=== PATIENT | female | born 1990 | race Caucasian/White ===

== ENCOUNTER 2017-01-29 00:11 | Observation (INO) | payer BC, MEDICAID ==
[2017-01-29] MEDS ORDERED: Albuterol/Ipratropium 3.0-0.5 MG/3 ML Neb Soln NEB ONE (00:32)
--- NOTE | 2017-01-29 00:44 | EDM.PDOC ---
ED HISTORY OF PRESENT ILLNESS - General Chief Complaint: Respiratory Problem Stated Complaint: shortness of breath Time Seen by Provider: 01/29/17 00:16 Source of Information: Reports: Patient, Family History Limitations: Reports: No limitations - History of Present Illness INITIAL COMMENTS - FREE TEXT/NARRATIVE: in with c/o sob/wheezing, pt appears to be in distress, O2 sat on room air is 86 %, denies fever or chills, no ear, nose or throat sx, no abd pain, no cp, no nvdc, advised sx started x 4 days ago and worse tonight. no calf pain, redness or swelling, no palpitations or irregular heart beat Symptom Onset Date: 01/28/17 Severity: severe Improves with: Reports: None Worsens with: Reports: None Associated Symptoms (General): Reports: cough, fever/chills. Denies: diaphoresis, nausea/vomiting, syncope, weakness Treatments THERAPY TECH: Reports: Other (see below) (proventil MDI) - Related Data Allergies/ADRs: Allergies Allergy/AdvReac Type Severity Reaction Status Date / Time levofloxacin [From Levaquin] Allergy Cannot Verified 01/29/17 00:25 Remember Home Meds: Home Meds Albuterol Sulfate [Proair Respiclick] 2 puff INH Q4HR PRN 09/21/15 [History] Past Medical History Respiratory History: Reports: Asthma Other OB/BYN History: miscariage x2 Neurological History: Reports: Migraines Other Hematologic History: anti-throbian 3 deficiciency Social & Family History - Tobacco Use Smoking Status *Q: Never Smoker Second Hand Smoke Exposure: No - Alcohol Use Alcohol Use History: No - Recreational Drug Use Recreational Drug Use: No - Living Situation & Occupation Living situation: Reports: , with family ED ROS GENERAL - Review of Systems Review Of Systems: See Below Constitutional: Reports: fever, chills HEENT: Reports: Sinus problem. Denies: Ear pain, Eye pain Respiratory: Reports: shortness of breath, wheezing, cough Cardiovascular: Reports: No symptoms. Denies: Chest pain Endocrine: Reports: no symptoms GI/Abdominal: Reports: No symptoms. Denies: Abdominal pain, Nausea, Vomiting : Reports: no symptoms Musculoskeletal: Reports: no symptoms. Denies: neck pain, back pain Skin: Reports: no symptoms. Denies: rash Neurological: Reports: no symptoms Psychiatric: Reports: No symptoms Hematologic/Lymphatic: Reports: no symptoms ED EXAM, GENERAL - Physical Exam Exam: See Below Exam Limited By: No limitations General Appearance: alert, WD/WN, mild distress, obese Ears: normal external exam, normal canal, hearing grossly normal, normal TMs Ear Exam: bilateral ear: auricle normal, canal normal, TM normal Nose: nasal drainage. No: normal inspection Throat/Mouth: Normal inspection, Normal lips, Normal oropharynx, Normal voice, No airway compromise Head: atraumatic, normocephalic Neck: normal inspection, supple, non-tender, full range of motion Respiratory/Chest: wheezing, accessory muscle use. No: lungs clear Cardiovascular: normal peripheral pulses, regular rate, rhythm, no murmur Peripheral Pulses: 2+: radial (L), radial (R) GI/Abdominal: soft, non tender Back Exam: normal inspection, full range of motion Extremities: normal inspection, normal range of motion, non-tender, no pedal edema, normal capillary refill Neurological: alert, oriented, normal cognition, normal gait, no motor/sensory deficits Psychiatric: normal affect, anxious Skin Exam: Warm, Dry, Intact, Normal color, No rash Lymphatic: no adenopathy EKG INTERPRETATION EKG Date: 01/29/17 Time: 00:50 Rhythm: other (Stach) Rate (beats/min): 111 [place]: normal P-wave: present QRS: normal ST-T: normal QT: normal EKG Interpretation Comments: STach rate 111 Course - Vital Signs Last Recorded V/S: Last Vital Signs Temp 38.3 C H 01/29/17 00:16 Pulse 110 H 01/29/17 00:16 Resp 24 H 01/29/17 00:16 BP 151/92 H 01/29/17 00:16 Pulse Ox 91 L 01/29/17 00:16 - Orders/Labs/Meds Orders: Active Orders 24 hr Category Date Time Status Pulse Oximetry [RC] ASDIRECTED Care 01/29/17 00:22 Active RT Aerosol Therapy [RC] ASDIRECTED Care 01/29/17 00:32 Active Supplemental O2 [Oxygen Therapy, ED] [RC] ASDIRECTED Care 01/29/17 00:20 Active Chest 2V [CR] Stat Exams 01/29/17 00:18 Taken CULTURE BLOOD [BC] Stat Lab 01/29/17 00:35 Received CULTURE BLOOD [BC] Stat Lab 01/29/17 00:40 Received DD [D-DIMER QUANTITATIVE] [COAG] Stat Lab 01/29/17 00:35 Received UA W/MICROSCOPIC [URIN] Stat Lab 01/29/17 01:00 Ordered Blood Culture x2 Reflex Set [OM.PC] Stat Oth 01/29/17 00:18 Ordered Labs: Laboratory Tests 01/29/17 01/29/17 01/29/17 Range/Units 00:35 00:35 00:35 WBC 11.8 H (5.0-10.0) 10^3/uL RBC 4.02 (4.00-5.50) 10^6/uL Hgb 11.3 L (12.0-16.0) g/dL Hct 34.0 L (37.0-47.0) % MCV 84.6 (82.0-94.0) fL MCH 28.1 (27.0-32.0) pg MCHC 33.2 (33.0-38.0) g/dL RDW Coeff of Angel 15.2 H (11.0-15.0) % Plt Count 281 (150-400) 10^3/uL Neut % (Auto) 69.7 (35-85) % Lymph % (Auto) 19.2 (10-55) % [place] % (Auto) 6.4 (0-16) % Eos % (Auto) 4.6 (0-5) % Baso % (Auto) 0.1 (0-3) % Neut # 8.23 H (1.80-7.00) 10^3/uL Lymph # 2.27 (1.00-4.80) 10^3/uL [place] # 0.75 (0.00-0.80) 10^3/uL Eos # 0.54 H (0.00-0.45) 10^3/uL Baso # 0.01 10^3/uL Sodium 142 (136-145) mEq/L Potassium 4.0 (3.5-5.0) mEq/L Chloride 106 (98-106) mEq/L Carbon Dioxide 23 (21-32) mmol/L BUN 13 (7-18) mg/dL Creatinine 0.9 (0.6-1.0) mg/dL Est Cr Clr Drug Dosing 86.34 mL/min Estimated GFR (MDRD) > 60 (>=60) mL/min Glucose 168 H (75-99) mg/dL Lactic Acid 1.5 (0.4-2.0) mmol/L Calcium 8.2 L (8.4-10.1) mg/dL Total Bilirubin 0.3 (0.0-1.0) mg/dL AST 10 L (15-37) U/L ALT 17 (12-78) U/L Alkaline Phosphatase 69 (46-116) U/L Troponin I < 0.017 (0.00-0.06) ng/mL C-Reactive Protein 2.3 H (0.2-0.8) mg/dL Total Protein 6.6 (6.4-8.2) g/dL Albumin 2.9 L (3.4-5.0) g/dL Meds: Medications Discontinued Medications Generic Name Dose Route Start Last Admin Trade Name Freq PRN Reason Stop Dose Admin Albuterol/Ipratropium 3 ml 01/29/17 00:32 01/29/17 00:39 Duoneb 3.0-0.5 Mg/3 Ml NEB 01/29/17 00:33 3 ml ONETIME ONE Administration Methylprednisolone Sodium Succinate 125 mg 01/29/17 00:45 01/29/17 00:50 Solu-Medrol IVPUSH 01/29/17 00:46 125 mg STAT ONE Administration Departure - Departure Time of Disposition: 01:08 Disposition: Refer to Observation Condition: good Clinical Impression: Acute severe exacerbation of asthma, SOB (shortness of breath), Fever, Hypoxia - Problem List & Annotations (1) Acute severe exacerbation of asthma SNOMED Code(s): 587004997 Code(s): J45.901 - UNSPECIFIED ASTHMA WITH (ACUTE) EXACERBATION Status: Acute Priority: High Onset Date: ~01/29/17 (2) SOB (shortness of breath) SNOMED Code(s): 669920020 Code(s): R06.02 - SHORTNESS OF BREATH Status: Acute Priority: High Onset Date: ~01/29/17 (3) Fever SNOMED Code(s): 261923621 Code(s): R50.9 - FEVER, UNSPECIFIED Status: Acute Priority: High Onset Date: ~01/29/17 (4) Hypoxia SNOMED Code(s): 900972238, 200796206 Code(s): R09.02 - HYPOXEMIA Status: Acute Priority: High Onset Date: ~ 01/29/17 - Problem List Review Problem List Initiated/Reviewed/Updated: Yes - My Orders Last 24 Hours: My Active Orders 01/29/17 00:18 Chest 2V [CR] Stat Blood Culture x2 Reflex Set [OM.PC] Stat 01/29/17 00:20 Supplemental O2 [Oxygen Therapy, ED] [RC] ASDIRECTED 01/29/17 00:22 Pulse Oximetry [RC] ASDIRECTED 01/29/17 00:32 RT Aerosol Therapy [RC] ASDIRECTED 01/29/17 00:35 CULTURE BLOOD [BC] Stat DD [D-DIMER QUANTITATIVE] [COAG] Stat 01/29/17 00:40 CULTURE BLOOD [BC] Stat 01/29/17 01:00 UA W/MICROSCOPIC [URIN] Stat - Assessment/Plan Admission H&P: Please use this note as an admission H&P Last 24 Hours: My Active Orders 01/29/17 00:18 Chest 2V [CR] Stat Blood Culture x2 Reflex Set [OM.PC] Stat 01/29/17 00:20 Supplemental O2 [Oxygen Therapy, ED] [RC] ASDIRECTED 01/29/17 00:22 Pulse Oximetry [RC] ASDIRECTED 01/29/17 00:32 RT Aerosol Therapy [RC] ASDIRECTED 01/29/17 00:35 CULTURE BLOOD [BC] Stat DD [D-DIMER QUANTITATIVE] [COAG] Stat 01/29/17 00:40 CULTURE BLOOD [BC] Stat 01/29/17 01:00 UA W/MICROSCOPIC [URIN] Stat
[2017-01-29] MEDS ORDERED: methylPREDNISolone Sodium Succinate 125 MG/2 ML SDV IVPUSH ONE (00:45)
[2017-01-29 00:58] LABS: CHLORIDE,CL 106 mEq/L (98-106); SODIUM,NA 142 mEq/L (136-145)
[2017-01-29] MEDS ORDERED: cefTRIAXone 1 GM Vial IVPUSH SCH (01:15)
[2017-01-29] MEDS ORDERED: methylPREDNISolone Sodium Succinate 125 MG/2 ML SDV IVPUSH SCH ×2 (01:15→08:00)
[2017-01-29] MEDS ORDERED: Enoxaparin 40 MG/0.4 ML Syringe SUBCUT SCH (01:15)
[2017-01-29] MEDS ORDERED: Sodium Chloride 0.9% 1,000 ML IV SCH (01:15)
[2017-01-29] MEDS: Albuterol/Ipratropium 3.0-0.5 MG/3 ML Neb Soln NEB SCH ×4 (02:08→13:17)
[2017-01-29] MEDS: Acetaminophen 325 MG Tab PO PRN ×2 (03:47→08:03)
[2017-01-29 11:13] VITALS: BP 151/85
[2017-01-30] MEDS ORDERED: Enoxaparin 40 MG/0.4 ML Syringe SUBCUT SCH (08:00)
[2017-01-30] MEDS ORDERED: cefTRIAXone 1 GM Vial IVPUSH SCH (08:00)
--- NOTE | 2017-01-31 09:27 | PCM.DCSUM1 ---
Discharge Summary - Hospital Course Free Text/Narrative:: Patient presented to ER with increased respiratory distress, wheezing. Known asthmatic but has been controlled for many years. Oxygen sat on room air 86%. Was given solu medrol and respiratory treatment but continued to be hypoxic so admission felt to be appropriate. WBC on admission to ER 11.8, CRP 2.3. Patient admitted for IV steroids, nebulizer treatments. - Discharge Data Discharge Date: 01/29/17 Discharge Disposition: Home, Self-Care 01 Condition: Good - Patient Summary/Data Complications: elevated blood sugars Consults: Consultations 01/29/17 08:18 Respiratory Care Assess and Treatment [CONS] Routine Hospital Course: Patient has done well during admission. Much improvement of lung sounds with steroids. Better air exchange. Able to wean off oxygen easily. Tolerated activity well. Blood sugars exceptionally high although she was on Solu Medrol. Did check A1C and was high at 6.7. Did have gestational diabetes but has not been on any medications for diabetes. Started on Metformin on discharge. Will have her follow up with Yumiko in clinic for further work up for this as indicated. - Patient Instructions Diet: Diabetic Diet Activity: As Tolerated - Discharge Plan Prescriptions/Med Rec: metFORMIN [Glucophage XR] 750 mg PO ACBREAKFAST #30 tab.er Home Medications: Home Meds Albuterol Sulfate [Proair Respiclick] 2 puff INH Q4HR PRN 09/21/15 [History] metFORMIN [Glucophage XR] 750 mg PO ACBREAKFAST #30 tab.er 01/29/17 [Rx] Referrals: Yumiko Dowling PA-C [Family Provider] - (Follow up in 10 days with CLAY Rogel) - Discharge Summary/Plan Comment DC Time >30 min.: No Discharge Summary/Plan Comment: Discharge home. Continue inhaler as needed. Start Metformin. Follow up with Yumiko Dowling for diabetic follow ups. - General Info Date of Service: 01/29/17 Admission Dx/Problem (Free Text: Asthma Exacerbation Functional Status: Reports: tolerating diet, ambulating, urinating - Review of Systems General: Denies: fever, weakness, fatigue HEENT: Reports: sinus congestion, rhinitis. Denies: sore throat Pulmonary: Reports: cough. Denies: shortness of breath, wheezing Cardiovascular: Denies: chest pain, edema, lightheadedness Gastrointestinal: Denies: Abdominal pain, Constipation, Diarrhea, Nausea, Vomiting Genitourinary: Reports: no symptoms Musculoskeletal: Reports: no symptoms Skin: Reports: no symptoms Neurological: Reports: no symptoms - Patient Data Vitals - Most Recent: Last Vital Signs Temp 99.4 F 01/29/17 11:11 Pulse 104 H 01/29/17 11:11 Resp 18 01/29/17 11:11 BP 151/85 H 01/29/17 11:11 Pulse Ox 97 01/29/17 11:11 Weight - Most Recent: 331 lb 9.6 oz Med Orders - Current: Current Medications Discontinued Medications Acetaminophen (Tylenol) 650 mg PO Q4H PRN PRN Reason: Fever Last Admin: 01/29/17 08:03 Dose: 650 mg Albuterol/Ipratropium (Duoneb 3.0-0.5 Mg/3 Ml) 3 ml NEB ONETIME ONE Stop: 01/29/17 00:33 Last Admin: 01/29/17 00:39 Dose: 3 ml Albuterol/Ipratropium (Duoneb 3.0-0.5 Mg/3 Ml) 3 ml NEB Q4H [facility] Last Admin: 01/29/17 13:17 Dose: 3 ml Ceftriaxone Sodium (Rocephin) 1 gm IVPUSH Q24H [facility] Last Admin: 01/29/17 02:14 Dose: 1 gm Ceftriaxone Sodium (Rocephin) 1 gm IVPUSH Q24H [facility] Enoxaparin Sodium (Lovenox) 40 mg SUBCUT Q24H [facility] Last Admin: 01/29/17 02:17 Dose: 40 mg Enoxaparin Sodium (Lovenox) 40 mg SUBCUT Q24H [facility] Sodium Chloride (Normal Saline) 1,000 mls @ 80 mls/hr IV ASDIRECTED [facility] Last Admin: 01/29/17 02:09 Dose: 80 mls/hr Methylprednisolone Sodium Succinate (Solu-Medrol) 125 mg IVPUSH STAT ONE Stop: 01/29/17 00:46 Last Admin: 01/29/17 00:50 Dose: 125 mg Methylprednisolone Sodium Succinate (Solu-Medrol) 80 mg IVPUSH Q8H [facility] Last Admin: 01/29/17 02:23 Dose: Not Given Methylprednisolone Sodium Succinate (Solu-Medrol) 80 mg IVPUSH Q8H [facility] Last Admin: 01/29/17 08:00 Dose: 80 mg - Exam General: Reports: alert, oriented HEENT: Reports: Mucous membr. moist/pink Neck: Reports: supple Lungs: Reports: Clear to auscultation, Normal respiratory effort Cardiovascular: Reports: regular rate, regular rhythm Abdomen: Reports: bowel sounds present, soft, no tenderness *Q Meaningful Use (DIS) - VTE *Q VTE Criteria *Q: - Stroke *Q Stroke Criteria *Q: - AMI *Q AMI Criteria *Q:
== END 2017-01-29 14:30 | disposition home or self-care (01) ==
LOC: CC.ED 00:11 → CC.MS 01:12 → UNDOADMOB 01:24 → CC.MS 01:24
PROVIDERS: ADMIT Nurse Practitioner; ATTEND Family Medicine
DX: J45.901 Unspecified asthma with (acute) exacerbation (principal); R06.02 Shortness of breath; R50.9 Fever, unspecified; R09.02 Hypoxemia; Z88.1 Allergy status to other antibiotic agents; Z79.899 Other long term (current) drug therapy
CPT/HCPCS: 36415; 71020; 80053; 81001; 82962; 83036; 83605; 84484; 85025; 85379; 86140; 87040; 87804; 93005; 94640; 96361; 96372; 96374; 96375; 96376; 99285; A9270; G0378; J0696; J1650; J2930; J7030